=== PATIENT | female | born 1980 | race Two or more races ===

== ENCOUNTER 2017-06-30 23:04 | Emergency (ER) | payer MEDICAID, OTHER ==
[~2017-06-30] VITALS: Ht 152.4 cm; Wt 62.0 kg
[2017-07-01] MEDS ORDERED: SODIUM CHLORIDE 0.9% 1,000 ML IV SCH (01:36)
[2017-07-01] MEDS ORDERED: METHYLPREDNISOLONE SOD SUCC 125 MG/2 ML VIAL IV ONE (01:45)
[2017-07-01] MEDS ORDERED: ONDANSETRON HCL 4MG/2ML VIAL IV ONE (01:45)
[2017-07-01] MEDS ORDERED: DIPHENHYDRAMINE 50MG/ML VIAL IV ONE (01:45)
[2017-07-01] MEDS ORDERED: CEFAZOLIN 1000MG PREMIX 50 ML IV ONE (01:45)
[2017-07-01 02:19] LABS: CHLORIDE 105 mEq/L (98-107)
[2017-07-01 02:23] LABS: BASOPHILS % 0.5 % (0.0-2.0); EOSINOPHILS % 3.9 % (0.0-5.0); HEMATOCRIT. 36.4 % (36.0-48.0); HEMOGLOBIN. 12.2 g/dL (12.0-16.0); MEAN CORPUSCULAR HEMOGLOBIN 28.9 pg (28.0-32.0); MEAN CORPUSCULAR VOLUME 86.4 fL (81.0-99.0); MEAN PLATELET VOLUME 8.1 fl (7.4-10.4); MONOCYTES % 9.1 % (2.0-8.0); NEUTROPHILS % 47.5 % (40.0-76.0); PLATELET 255 x1000/uL (130-400); RED BLOOD CELL COUNT 4.21 mill/uL (4.2-5.4); RED CELL DISTRIBUTION WIDTH 12.4 % (11.6-14.6)
[2017-07-01 02:28] LABS: CARBON DIOXIDE 27 mEq/L (21-32)
[2017-07-01 05:43] VITALS: BP 121/54
== END 2017-07-01 05:54 | disposition home or self-care (01) ==
LOC: ER 23:05
DX: L03.114 Cellulitis of left upper limb (principal); T78.40XA Allergy, unspecified, initial encounter; R13.10 Dysphagia, unspecified; R06.02 Shortness of breath; X58.XXXA Exposure to other specified factors, initial encounter
CPT/HCPCS: 36415; 80048; 81025; 85025; 96365; 96375; 99285; J0690; J1200; J2405; J2930; J7030; Z7610

== ENCOUNTER 2018-01-02 17:05 | Emergency (ER) | payer OTHER ==
[~2018-01-02] VITALS: Ht 152.4 cm; Wt 61.0 kg
[2018-01-02] MEDS ORDERED: SODIUM CHLORIDE 0.9% 1,000 ML IV ONE (18:19)
[2018-01-02] MEDS ORDERED: MORPHINE SULFATE 4 MG/ML CPJ (NOT FOR IM USE) IV STA (18:19)
[2018-01-02] MEDS ORDERED: ONDANSETRON HCL 4MG/2ML VIAL IV STA (18:19)
[2018-01-02 19:33] LABS: BASOPHILS % 0.8 % (0.0-2.0); EOSINOPHILS % 3.6 % (0.0-5.0); HEMATOCRIT. 35.7 % (36.0-48.0); HEMOGLOBIN. 12.1 g/dL (12.0-16.0); LYMPHOCYTES % 47.4 % (20.0-50.0); MEAN CORPUSCULAR HEMOGLOBIN 29.4 pg (28.0-32.0); MEAN CORPUSCULAR VOLUME 86.6 fL (81.0-99.0); MEAN PLATELET VOLUME 7.9 fl (7.4-10.4); MONOCYTES % 9.3 % (2.0-8.0); NEUTROPHILS % 38.9 % (40.0-76.0); PLATELET 267 x1000/uL (130-400); RED BLOOD CELL COUNT 4.12 mill/uL (4.2-5.4); RED CELL DISTRIBUTION WIDTH 13.1 % (11.6-14.6)
[2018-01-02 19:47] LABS: CHLORIDE 107 mEq/L (98-107); ETHANOL BLOOD < 10 mg/dL
[2018-01-02 19:53] LABS: CREATINE KINASE 66 IU/L (26-192); TROPONIN I < 0.02 ng/mL (0.00-0.04)
[2018-01-02] MEDS ORDERED: KETOROLAC 30MG/ML VIAL IV ONE (21:00)
[2018-01-02 21:41] LABS: HCG SCREEN NEGATIVE
[2018-01-03 01:30] VITALS: BP 92/57
== END 2018-01-03 02:05 | disposition home or self-care (01) ==
LOC: ER 18:14
DX: R51 Headache (principal); R42 Dizziness and giddiness; Z90.49 Acquired absence of other specified parts of digestive tract; Z98.890 Other specified postprocedural states
CPT/HCPCS: 36415; 70450; 80053; 82550; 83880; 84443; 84484; 84703; 85025; 85651; 93005; 96361; 96374; 96375; 99285; G0482; J1885; J2270; J2405; J7030

== ENCOUNTER 2018-07-08 08:50 | Emergency (ER) | payer OTHER ==
[~2018-07-08] VITALS: Ht 162.6 cm; Wt 62.0 kg
[2018-07-08 09:56] LABS: CLARITY URINE CLEAR (CLEAR); COLOR URINE YELLOW (YELLOW); KETONES URINE NEGATIVE (NEGATIVE); LEUKOCYTE ESTERASE URINE NEGATIVE (NEGATIVE); NITRITE URINE NEGATIVE (NEGATIVE); OCCULT BLOOD URINE NEGATIVE (NEGATIVE); PH URINE 7.5 (4.5-8.0); PROTEIN URINE NEGATIVE (NEGATIVE); SPECIFIC GRAVITY URINE 1.001 (1.005-1.030); UROBILINOGEN URINE 0.2 E.U./dL (0.2-1.0)
[2018-07-08] MEDS ORDERED: SODIUM CHLORIDE 0.9% 1,000 ML IV ONE (10:25)
[2018-07-08] MEDS ORDERED: ONDANSETRON HCL 4MG/2ML INJ IV STA (10:25)
[2018-07-08] MEDS ORDERED: MORPHINE SULFATE 4 MG/ML CPJ (NOT FOR IM USE) IV STA (10:25)
[2018-07-08 11:07] LABS: BASOPHILS % 0.4 % (0.0-2.0); EOSINOPHILS % 1.6 % (0.0-5.0); HEMATOCRIT. 39.4 % (36.0-48.0); HEMOGLOBIN. 13.2 g/dL (12.0-16.0); LYMPHOCYTES % 30.1 % (20.0-50.0); MEAN CORPUSCULAR HEMOGLOBIN 29.6 pg (28.0-32.0); MEAN CORPUSCULAR VOLUME 88.5 fL (81.0-99.0); MEAN PLATELET VOLUME 7.8 fl (7.4-10.4); MONOCYTES % 8.6 % (2.0-8.0); NEUTROPHILS % 59.3 % (40.0-76.0); PLATELET 279 x1000/uL (130-400); RED BLOOD CELL COUNT 4.45 mill/uL (4.2-5.4); RED CELL DISTRIBUTION WIDTH 12.5 % (11.6-14.6)
[2018-07-08 11:12] LABS: CHLORIDE 105 mEq/L (98-107)
[2018-07-08 11:31] LABS: HCG SCREEN NEGATIVE
[2018-07-08] MEDS ORDERED: IOHEXOL-300 100 ML BOTTLE ONE (14:07)
[2018-07-08] MEDS ORDERED: CEFTRIAXONE SODIUM 250 MG/VIAL IM ONE (15:30)
[2018-07-08] MEDS ORDERED: AZITHROMYCIN 500 MG TABLET PO ONE (15:30)
[2018-07-08] MEDS ORDERED: KETOROLAC 30MG/ML VIAL IV ONE (15:30)
[2018-07-08 17:58] VITALS: BP 100/55
[2018-07-11 04:16] LABS: CHLAMYDIA TRACHOMATIS NAA Negative (Negative); NEISSERIA GONORRHOEAE NAA Negative (Negative)
== END 2018-07-08 17:59 | disposition home or self-care (01) ==
LOC: ER 08:50
DX: N73.9 Female pelvic inflammatory disease, unspecified (principal); Z90.49 Acquired absence of other specified parts of digestive tract
CPT/HCPCS: 36415; 74177; 76705; 76830; 76856; 80053; 81003; 81025; 83690; 84703; 85025; 87210; 87491; 87591; 93005; 96361; 96372; 96374; 96375; 99285; J0696; J1885; J2270; J2405; J7030; Q9967

== ENCOUNTER 2018-10-13 19:44 | Emergency (ER) | payer MEDICAID, OTHER ==
[~2018-10-13] VITALS: Ht 152.4 cm; Wt 61.0 kg
[2018-10-13] MEDS ORDERED: SODIUM CHLORIDE 0.9% 1,000 ML IV ONE (23:55)
[2018-10-13] MEDS ORDERED: KETOROLAC 30MG/ML VIAL IV STA (23:55)
[2018-10-14 00:31] LABS: BASOPHILS % 0.5 % (0.0-2.0); EOSINOPHILS % 2.7 % (0.0-5.0); HEMATOCRIT. 37.2 % (36.0-48.0); HEMOGLOBIN. 12.7 g/dL (12.0-16.0); LYMPHOCYTES % 38.6 % (20.0-50.0); MEAN CORPUSCULAR HEMOGLOBIN 29.9 pg (28.0-32.0); MEAN CORPUSCULAR VOLUME 87.6 fL (81.0-99.0); MEAN PLATELET VOLUME 7.8 fl (7.4-10.4); MONOCYTES % 8.5 % (2.0-8.0); NEUTROPHILS % 49.7 % (40.0-76.0); PLATELET 292 x1000/uL (130-400); RED BLOOD CELL COUNT 4.24 mill/uL (4.2-5.4); RED CELL DISTRIBUTION WIDTH 12.3 % (11.6-14.6)
[2018-10-14 00:39] LABS: CHLORIDE 104 mEq/L (98-107)
[2018-10-14 00:43] LABS: HCG SCREEN NEGATIVE
[2018-10-14 01:22] LABS: CLARITY URINE CLEAR (CLEAR); COLOR URINE YELLOW (YELLOW); KETONES URINE NEGATIVE (NEGATIVE); LEUKOCYTE ESTERASE URINE NEGATIVE (NEGATIVE); NITRITE URINE NEGATIVE (NEGATIVE); OCCULT BLOOD URINE NEGATIVE (NEGATIVE); PROTEIN URINE NEGATIVE (NEGATIVE); UROBILINOGEN URINE 0.2 E.U./dL (0.2-1.0)
[2018-10-14] MEDS ORDERED: HYDROCODONE/ACETAMINOPHEN 5/325MG TABLET PO ONE (01:45)
[2018-10-14 02:35] VITALS: BP 94/62
== END 2018-10-14 02:45 | disposition home or self-care (01) ==
LOC: ER 23:32
DX: B34.9 Viral infection, unspecified (principal); G43.909 Migraine, unspecified, not intractable, without status migrainosus; Z90.49 Acquired absence of other specified parts of digestive tract
CPT/HCPCS: 36415; 80053; 81003; 83605; 83690; 84703; 85025; 96374; 99283; J1885; J7030

== ENCOUNTER 2019-04-05 17:42 | Emergency (ER) | payer MEDICAID ==
[~2019-04-05] VITALS: Ht 152.4 cm; Wt 62.0 kg
[2019-04-05] MEDS ORDERED: SODIUM CHLORIDE 0.9% 1,000 ML IV ONE (19:01)
[2019-04-05] MEDS ORDERED: KETOROLAC 30MG/ML VIAL IV STA (19:01)
[2019-04-05 19:28] LABS: BASOPHILS % 0.4 % (0.0-2.0); EOSINOPHILS % 1.6 % (0.0-5.0); HEMATOCRIT. 38.2 % (36.0-48.0); HEMOGLOBIN. 13.1 g/dL (12.0-16.0); LYMPHOCYTES % 34.8 % (20.0-50.0); MEAN CORPUSCULAR VOLUME 87.8 fL (81.0-99.0); MEAN PLATELET VOLUME 7.7 fl (7.4-10.4); MONOCYTES % 7.9 % (2.0-8.0); NEUTROPHILS % 55.3 % (40.0-76.0); PLATELET 249 x1000/uL (130-400); RED BLOOD CELL COUNT 4.35 mill/uL (4.2-5.4); RED CELL DISTRIBUTION WIDTH 12.8 % (11.6-14.6)
[2019-04-05 19:32] LABS: CHLORIDE 109 mEq/L (98-107)
[2019-04-05 21:26] LABS: CLARITY URINE CLEAR (CLEAR); COLOR URINE YELLOW (YELLOW); KETONES URINE NEGATIVE (NEGATIVE); LEUKOCYTE ESTERASE URINE NEGATIVE (NEGATIVE); NITRITE URINE NEGATIVE (NEGATIVE); OCCULT BLOOD URINE NEGATIVE (NEGATIVE); PROTEIN URINE NEGATIVE (NEGATIVE); SPECIFIC GRAVITY URINE 1.005 (1.005-1.030); UROBILINOGEN URINE 0.2 E.U./dL (0.2-1.0)
[2019-04-05 22:31] VITALS: BP 115/58
== END 2019-04-05 22:34 | disposition home or self-care (01) ==
LOC: ER 17:42
DX: R10.31 Right lower quadrant pain (principal); G43.909 Migraine, unspecified, not intractable, without status migrainosus; Z90.49 Acquired absence of other specified parts of digestive tract; Z98.890 Other specified postprocedural states
CPT/HCPCS: 36415; 74176; 80053; 81003; 81025; 83690; 85025; 96374; 99284; J1885; J7030

== ENCOUNTER 2019-07-14 10:55 | Emergency (ER) | payer MEDICAID ==
[~2019-07-14] VITALS: Ht 152.4 cm; Wt 64.0 kg
[2019-07-14] MEDS ORDERED: KETOROLAC 30MG/ML VIAL IM ONE (13:45)
[2019-07-14 14:09] VITALS: BP 119/69
[2019-07-14 14:36] LABS: CLARITY URINE CLEAR (CLEAR); COLOR URINE YELLOW (YELLOW); KETONES URINE NEGATIVE (NEGATIVE); LEUKOCYTE ESTERASE URINE NEGATIVE (NEGATIVE); NITRITE URINE NEGATIVE (NEGATIVE); OCCULT BLOOD URINE NEGATIVE (NEGATIVE); PROTEIN URINE NEGATIVE (NEGATIVE); UROBILINOGEN URINE 0.2 E.U./dL (0.2-1.0)
== END 2019-07-14 16:33 | disposition home or self-care (01) ==
LOC: ER 12:05
DX: M54.30 Sciatica, unspecified side (principal); G43.909 Migraine, unspecified, not intractable, without status migrainosus; Z90.49 Acquired absence of other specified parts of digestive tract; Z98.890 Other specified postprocedural states
CPT/HCPCS: 81003; 81025; 96372; 99283; J1885

== ENCOUNTER 2021-02-22 23:53 | Emergency (ER) | payer MEDICAID ==
[~2021-02-22] VITALS: Ht 154.9 cm; Wt 57.0 kg
[2021-02-23] MEDS ORDERED: ACETAMINOPHEN 325MG TABLET PO ONE (01:00)
[2021-02-23] MEDS ORDERED: BACITRACIN ZINC OINT UDPKT TOP ONE (01:30)
[2021-02-23] MEDS ORDERED: LIDOCAINE HCL/EPINEPHRINE 1%-EPI 1:100,000 20 ML VIAL INFIL ONE (01:30)
[2021-02-23] MEDS ORDERED: TETANUS, DIPHTHERIA, PERTUSSIS VAC/PF 0.5ML (>7YR OLD) IM ONE (01:30)
[2021-02-23 01:33] LABS: BASOPHILS % 0.3 % (0.0-2.0); EOSINOPHILS % 1.8 % (0.0-5.0); HEMATOCRIT. 37.6 % (36.0-48.0); HEMOGLOBIN. 12.7 g/dL (12.0-16.0); LYMPHOCYTES % 24.3 % (20.0-50.0); MEAN CORPUSCULAR HEMOGLOBIN 29.3 pg (28.0-32.0); MEAN CORPUSCULAR VOLUME 87.2 fL (81.0-99.0); MEAN PLATELET VOLUME 7.7 fl (7.4-10.4); MONOCYTES % 9.7 % (2.0-8.0); NEUTROPHILS % 63.9 % (40.0-76.0); PLATELET 297 x1000/uL (130-400); RED BLOOD CELL COUNT 4.31 mill/uL (4.2-5.4); RED CELL DISTRIBUTION WIDTH 12.7 % (11.6-14.6)
[2021-02-23 01:42] LABS: CHLORIDE 108 mEq/L (98-107)
[2021-02-23 01:42] LABS: CLARITY URINE CLEAR (CLEAR); COLOR URINE YELLOW (YELLOW); KETONES URINE NEGATIVE (NEGATIVE); LEUKOCYTE ESTERASE URINE NEGATIVE (NEGATIVE); NITRITE URINE NEGATIVE (NEGATIVE); OCCULT BLOOD URINE NEGATIVE (NEGATIVE); PROTEIN URINE NEGATIVE (NEGATIVE); SPECIFIC GRAVITY URINE 1.004 (1.005-1.030); UROBILINOGEN URINE 0.2 E.U./dL (0.2-1.0)
[2021-02-23 01:49] LABS: ETHANOL BLOOD < 10 mg/dL
[2021-02-23 01:50] LABS: HCG SCREEN NEGATIVE
[2021-02-23 01:54] LABS: *AMPHETAMINES SCREEN URINE NEGATIVE (NEGATIVE); *BARBITURATES SCREEN URINE NEGATIVE (NEGATIVE); *BENZODIAZEPINES SCREEN URINE NEGATIVE (NEGATIVE)
[2021-02-23 01:55] LABS: *COCAINE SCREEN URINE NEGATIVE (NEGATIVE); CANNABINOID URINE SCREEN NEGATIVE (NEGATIVE); METHADONE URINE SCREEN NEGATIVE (NEGATIVE); OPIATES URINE SCREEN NEGATIVE (NEGATIVE); PHENCYCLIDINE URINE SCREEN NEGATIVE (NEGATIVE)
[2021-02-23 05:30] VITALS: BP 95/60
== END 2021-02-23 07:01 | disposition home or self-care (01) ==
LOC: ER 23:53
DX: R41.82 Altered mental status, unspecified (principal); R46.2 Strange and inexplicable behavior; S61.512A Laceration without foreign body of left wrist, initial encounter; Y93.89 Activity, other specified; Y92.9 Unspecified place or not applicable; Z90.49 Acquired absence of other specified parts of digestive tract
CPT/HCPCS: 12002; 36415; 80053; 80305; 80307; 80320; 80329; 81003; 84703; 85025; 90471; 90715; 93005; 99284; J3490; Z7610; G0480

== ENCOUNTER 2021-06-07 09:46 | Emergency (ER) | payer MEDICAID ==
[~2021-06-07] VITALS: Ht 152.4 cm; Wt 66.0 kg
[2021-06-07] MEDS ORDERED: MECLIZINE 25MG TABLET PO ONE (12:15)
[2021-06-07 13:24] LABS: CLARITY URINE CLEAR (CLEAR); COLOR URINE YELLOW (YELLOW); KETONES URINE NEGATIVE (NEGATIVE); LEUKOCYTE ESTERASE URINE NEGATIVE (NEGATIVE); NITRITE URINE NEGATIVE (NEGATIVE); OCCULT BLOOD URINE NEGATIVE (NEGATIVE); PROTEIN URINE NEGATIVE (NEGATIVE); SPECIFIC GRAVITY URINE 1.012 (1.005-1.030); UROBILINOGEN URINE 0.2 E.U./dL (0.2-1.0)
[2021-06-07 13:52] LABS: CHLORIDE 107 mEq/L (98-107)
[2021-06-07 13:54] LABS: BASOPHILS % 0.7 % (0.0-2.0); EOSINOPHILS % 1.8 % (0.0-5.0); HEMOGLOBIN. 13.5 g/dL (12.0-16.0); LYMPHOCYTES % 37.7 % (20.0-50.0); MEAN CORPUSCULAR HEMOGLOBIN 29.3 pg (28.0-32.0); MEAN CORPUSCULAR VOLUME 86.9 fL (81.0-99.0); MEAN PLATELET VOLUME 7.5 fl (7.4-10.4); MONOCYTES % 7.6 % (2.0-8.0); NEUTROPHILS % 52.2 % (40.0-76.0); PLATELET 293 x1000/uL (130-400); RED BLOOD CELL COUNT 4.61 mill/uL (4.2-5.4)
[2021-06-07] MEDS ORDERED: MAGNESIUM/ALUMINUM HYDROXIDE/SIMETHICONE 30ML UDC PO ONE (14:30)
[2021-06-07] MEDS ORDERED: MECL-115 PO (16:08)
[2021-06-07 16:37] VITALS: BP 94/55
== END 2021-06-07 16:57 | disposition home or self-care (01) ==
LOC: ER 09:46
DX: R42 Dizziness and giddiness (principal); E78.00 Pure hypercholesterolemia, unspecified; Z88.0 Allergy status to penicillin; Z88.2 Allergy status to sulfonamides; Z90.49 Acquired absence of other specified parts of digestive tract
CPT/HCPCS: 36415; 71045; 74018; 80053; 81003; 81025; 85025; 93005; 99285; J8597; Z7610; A4315

== ENCOUNTER 2022-01-07 07:09 | Emergency (ER) | payer MEDICAID ==
[~2022-01-07] VITALS: Ht 165.1 cm; Wt 61.0 kg
[~2022-01-07 07:09] MED LIST: MECL-115 PO
[2022-01-07 07:22] VITALS: BP 110/70
== END 2022-01-07 08:26 | disposition home or self-care (01) ==
LOC: ER 07:21
DX: J35.8 Other chronic diseases of tonsils and adenoids (principal); J35.01 Chronic tonsillitis; Z88.0 Allergy status to penicillin; Z88.2 Allergy status to sulfonamides
CPT/HCPCS: 99281

== ENCOUNTER 2024-07-30 08:49 | Emergency (ER) | payer MEDICAID ==
[~2024-07-30] VITALS: Ht 162.6 cm; Wt 68.0 kg
[2024-07-30 08:52] VITALS: TEMP 98.9; O2SAT 99
[2024-07-30] MEDS: PREDNISONE 20MG TABLET PO ONE (10:49)
[2024-07-30] MEDS: IPRATROPIUM/ALBUTEROL 0.5-3(2.5)MG/3ML NEB HHN ONE (11:53)
[2024-07-30] MEDS ORDERED: ALBU90AE INH (12:59)
[2024-07-30] MEDS ORDERED: FLUT9.9S BOTHNSTRLS (12:59)
[2024-07-30] MEDS ORDERED: CLAR10 MT (12:59)
[2024-07-30] MEDS ORDERED: P50 MT (12:59)
[2024-07-30 13:28] VITALS: BP 114/80; PULSE 74; RESP 16; O2SAT 99
== END 2024-07-30 13:29 | disposition home or self-care (01) ==
LOC: ER 08:49
DX: R05.9 Cough, unspecified (principal); Z88.0 Allergy status to penicillin; Z88.2 Allergy status to sulfonamides; Z20.822 Contact with and (suspected) exposure to COVID-19
CPT/HCPCS: 99283; 87426; J7512; Z7610